=== PATIENT | female | born 1970 | race American Indian/Alaskan Native ===

== ENCOUNTER 2016-12-13 12:03 | Emergency (ER) | payer MEDICARE ==
[2016-12-13 13:12] LABS: Basophils % (Auto) 0.7 % (0.0-1.8); Eosinophils % (Auto) 0.8 % (0.0-4.3); Hemoglobin 12.1 gm/dl (10.1-14.3); Mean Corpuscular HGB Conc 33 % (30-34); Mean Corpuscular Hemoglobin 32 pg (28-32); Mean Corpuscular Volume 96 fl (79-97); Platelet Count 252 K/mm3 (140-440); Red Blood Count 3.86 M/mm3 (3.65-5.03); Red Cell Distribution Width 15.8 % (13.2-15.2); White Blood Count 5.4 K/mm3 (4.5-11.0)
[2016-12-13 13:15] LABS: Anion Gap 16 mmol/L; BUN/Creatinine Ratio 8.88; Blood Urea Nitrogen 8 mg/dL (7-17); Calcium 9.3 mg/dL (8.4-10.2); Carbon Dioxide 28 mmol/L (22-30); Chloride 99.5 mmol/L (98-107); Glucose 90 mg/dL (65-100); Sodium 139 mmol/L (137-145)
[2016-12-13] MEDS ORDERED: ZOFRAN ODT PO ONE (21:50)
[2016-12-13] MEDS ORDERED: MORPHINE IM ONE (21:50)
--- NOTE | 2016-12-13 22:26 | Emergency Department Report ---
HPI - General Chief Complaint: Chest Pain Time Seen by Provider: 12/13/16 21:17 - HPI HPI: The patient is a 46-year-old female presents for evaluation of chest pain. The patient reports chest pain for the past one week, constant for the past one day , 5/10 in severity, dull in quality. The patient denies fever, trauma to the chest, cough, syncope, hemoptysis, unilateral leg swelling, oral contraceptive use, recent immobilization, history of DVT or PE, recent cancer, history of familial coagulation disorder. ED Past Medical Hx - Past Medical History Previous Medical History?: Yes Hx Hypertension: Yes Hx CVA: No Hx Diabetes: Yes (borderline) Hx GERD: Yes Hx Renal Disease: No Hx Arthritis: Yes Hx Seizures: Yes Hx Asthma: Yes Additional medical history: lupus. hiatal hernia. SVT. FIBROMYALGIA. NEUROPATHY. NARCOLEPSY. HYPOTHYROIDISM. OBESITY. SLEEP APNEA - Surgical History Past Surgical History?: Yes Hx Pacemaker: No Additional Surgical History: ESOPHAGEAL WIDENING. X 2. TUBAL LIGATION - Social History Smoking Status: Never Smoker Substance Use Type: None - Medications Home Medications: Home Medications Medication Instructions Recorded Confirmed Last Taken Type Duloxetine HCl [Cymbalta] 60 mg PO DAILY 08/28/15 12/13/16 01/08/16 History Ergocalciferol [Vitamin D2] 1 cap PO QWEEK 08/28/15 12/13/16 01/08/16 History Nortriptyline [Pamelor] 25 mg PO QHS 08/28/15 12/13/16 01/08/16 History levETIRAcetam [Keppra TAB] 1,000 mg PO Q8H 08/28/15 12/13/16 01/08/16 History Gabapentin [Neurontin] 300 mg PO Q8HR #90 capsule 08/29/15 12/13/16 01/08/16 Rx Labetalol HCl [Trandate TAB] 300 mg PO BID #60 tablet 08/29/15 12/13/16 Rx Losartan [Cozaar] 100 mg PO QDAY #30 tablet 08/29/15 12/13/16 01/08/16 Rx Butalb/Acetaminophen/Caffeine 1 cap PO Q6HR PRN #14 cap 01/09/16 12/13/16 Unknown Rx [Fioricet 50-300-40 mg CAP] Diclofenac Sodium 75 mg PO BID 01/09/16 12/13/16 01/08/16 History Furosemide [Lasix TAB] 20 mg PO QDAY PRN 01/09/16 12/13/16 01/08/16 History Hydroxychloroquine [Plaquenil] 200 mg PO BID 01/09/16 12/13/16 01/08/16 History Levothyroxine [Synthroid] 300 mcg PO QAM 01/09/16 12/13/16 01/08/16 History NIFEdipine XL [Procardia Xl] 60 mg PO BID 01/09/16 12/13/16 01/08/16 History Pregabalin [Lyrica] 75 mg PO BID 01/09/16 12/13/16 01/08/16 History predniSONE [Deltasone] 20 mg PO QDAY 01/09/16 12/13/16 01/08/16 History predniSONE [Deltasone] 20 mg PO QDAY #5 tab 12/13/16 Unknown Rx traMADol [Ultram 50 MG tab] 50 mg PO Q6HR PRN #20 tablet 12/13/16 Unknown Rx ED Review of Systems ROS: Stated complaint: CHEST PAIN Other details as noted in HPI Constitutional: denies: fever ENT: denies: throat or neck pain Respiratory: denies: cough, shortness of breath Cardiovascular: reports chest pain Endocrine: denies unexplained weight loss or gain Gastrointestinal: denies: abdominal pain, nausea Genitourinary: denies: dysuria Musculoskeletal: denies: leg swelling Skin: denies: rash Neurological: denies: headache Hematological/Lymphatic: denies: easy bleeding or easy bruising Psych: denies sadness or hopelessness Physical Exam - Physical Exam Vital Signs: Vital Signs 12/13/16 12/13/16 12:22 21:19 Temperature 98.8 F Pulse Rate 81 96 H Respiratory 22 16 Rate Blood Pressure 161/109 Blood Pressure 174/104 [Left] O2 Sat by Pulse 100 98 Oximetry Physical Exam: General: well-nourished, well-developed, no acute distress Head: Normocephalic, atraumatic Eyes: normal sclera ENT: Mucous membranes are pink and moist Neck: trachea midline, neck supple, No neck stiffness, no cervical adenopathy Respiratory: Breath sounds equal bilaterally, no wheezing, rales, or rhonchi Cardio: S1 and S2 present, no murmurs, rubs, gallops, capillary refill is brisk Abdomen: Normoactive bowel sounds, soft abdomen, no rigidity, no guarding or rebound tenderness Musc: No pitting edema Skin: No rash Neuro: no facial drooping, normal speech Psych: Normal affect ED Course Vital Signs 12/13/16 12/13/16 12:22 21:19 Temperature 98.8 F Pulse Rate 81 96 H Respiratory 22 16 Rate Blood Pressure 161/109 Blood Pressure 174/104 [Left] O2 Sat by Pulse 100 98 Oximetry ED Medical Decision Making - Lab Data Result diagrams: 12/13/16 12:41 12/13/16 12:41 - Medical Decision Making The patient was seen and examined by myself. The patient is placed on a quality assurance monitor and continuous pulse ox. On initial evaluation, the patient was found to be in no distress. EKG was negative for findings suggestive of acute cardiac infarct. Labs and imaging are obtained. The patient is given IM dose of morphine for her pain. Chest x-ray is negative for pneumothorax, focal consolidation, pulmonary vascular congestion, pleural effusion, or other obvious acute cardiopulmonary disease process. Lab results were non-concerning including levels of troponin, WBC, hemoglobin, hematocrit, electrolytes, renal function. The patient was reevaluated and reported that their symptoms were markedly improved. As the patient has a MATTHEW risk score less than 2, and a well 's score less than 2, the patient is at low risk of ACS or pulmonary emboli etiology of their symptoms. The patient is stable for discharge with outpatient follow-up. The patient is given follow-up and return instructions. The patient expressed understanding and agreed with the plan. The patient is discharged in stable condition. Critical care attestation.: If time is entered above; I have spent that time in minutes in the direct care of this critically ill patient, excluding procedure time. ED Disposition Clinical Impression: Acute chest pain Disposition: DISCHARGED TO HOME OR SELFCARE Is pt being admited?: No Does the pt Need Aspirin: No Condition: Stable Instructions: Chest Pain (ED) Referrals: PRIMARY CARE, [Primary Care Provider] - 3-5 Days Time of Disposition: 22:05
[2016-12-13 22:51] VITALS: BP 168/101
--- NOTE | 2016-12-14 07:30 | XRay Report ---
AP CHEST: HISTORY: chest pain AP view of the chest demonstrates a normal mediastinal and cardiac contour with clear lungs and normal bony and soft tissue structures. IMPRESSION: No acute cardiopulmonary process.
== END 2016-12-13 23:01 | disposition home or self-care (01) ==
LOC: ED 12:03
DX: R07.9 Chest pain, unspecified (principal); I10 Essential (primary) hypertension; E11.9 Type 2 diabetes mellitus without complications; K21.9 Gastro-esophageal reflux disease without esophagitis; M19.90 Unspecified osteoarthritis, unspecified site; J45.909 Unspecified asthma, uncomplicated; E66.9 Obesity, unspecified; M32.9 Systemic lupus erythematosus, unspecified; E03.9 Hypothyroidism, unspecified
CPT/HCPCS: 36415; 71010; 80048; 84484; 85025; 93005; 93010; 96372; 99285; J2270; Q0162

== ENCOUNTER 2017-09-20 18:48 | Emergency (ER) | payer MEDICARE ==
[2017-09-20] MEDS ORDERED: ZOFRAN ONE (19:40)
[2017-09-20 20:32] LABS: Basophils # (Auto) 0.1 K/mm3 (0.0-0.1); Basophils % (Auto) 0.8 % (0.0-1.8); Eosinophils # (Auto) 0.1 K/mm3 (0.0-0.4); Eosinophils % (Auto) 1.1 % (0.0-4.3); Hematocrit 34.4 % (30.3-42.9); Hemoglobin 11.1 gm/dl (10.1-14.3); Lymphocytes # (Auto) 2.4 K/mm3 (1.2-5.4); Mean Corpuscular HGB Conc 32 % (30-34); Mean Corpuscular Hemoglobin 31 pg (28-32); Mean Corpuscular Volume 95 fl (79-97); Monocytes # (Auto) 0.5 K/mm3 (0.0-0.8); Monocytes % (Auto) 6.4 % (0.0-7.3); Platelet Count 220 K/mm3 (140-440); Red Blood Count 3.61 M/mm3 (3.65-5.03); Red Cell Distribution Width 17.2 % (13.2-15.2)
[2017-09-20 20:39] LABS: BUN/Creatinine Ratio 13; Blood Urea Nitrogen 14 mg/dL (7-17); Calcium 8.8 mg/dL (8.4-10.2); Hemolysis Index 18
[2017-09-20] MEDS ORDERED: MORPHINE IV ONE ×2 (20:43→22:41)
[2017-09-20] MEDS ORDERED: APRESOLINE IV ONE ×2 (20:43→23:23)
--- NOTE | 2017-09-20 20:51 | Emergency Department Report ---
ED Chest Pain HPI - General Chief Complaint: Chest Pain Stated Complaint: CHEST PAIN Time Seen by Provider: 09/20/17 20:09 Source: patient, EMS Mode of arrival: Stretcher Limitations: No Limitations - History of Present Illness Initial Comments: 47-year-old [place] female presents to the emergency department with complaint of some midsternal chest pain/pressure that started about 45 minutes prior to arrival. Associated with some nausea without vomiting. The patient was recently admitted to [facility] after she presented with SVT and chest pain. She had a cardiac catheterization done on 09/18/17, 2 days ago, but did not show any type of coronary artery occlusion or stenosis and she had an ejection fraction of 55%, basically showing a normal catheterization. She also has been dealing with some elevated blood pressure and subsequent headaches. Prior to this last admission, the patient had been noncompliant with her medications secondary to insurance issues. She just recently was restarted on some of her meds and is taking Lopressor and Diovan for blood pressure. She has a past medical history of asthma, borderline diabetes, GERD, hypertension, lupus, fibromyalgia and hypothyroidism. Her primary care physician is a Dr. pantoja and she sees [facility] and Dr. Elizabeth. She has not taken anything for her symptoms prior to presentation. - Related Data Home Medications Medication Instructions Recorded Confirmed Last Taken Furosemide [Lasix TAB] 40 mg PO DAILY 01/09/16 09/14/17 01/08/16 DULoxetine [Cymbalta] 30 mg PO DAILY 09/14/17 09/14/17 Unknown Gabapentin [Neurontin] 400 mg PO TID 09/14/17 09/14/17 Unknown Levothyroxine [Synthroid] 50 mcg PO DAILY 09/14/17 09/14/17 Unknown levETIRAcetam [Keppra] 500 mg PO BID 09/14/17 09/14/17 Unknown Previous Rx's Medication Instructions Recorded Last Taken Type Hydroxychloroquine [Plaquenil] 200 mg PO BID tablet 09/18/17 Unknown Rx Levothyroxine [Synthroid] 300 mcg PO QAM@0600 tablet 09/18/17 Unknown Rx Metoprolol [Lopressor TAB] 25 mg PO BID #60 tablet 09/18/17 Unknown Rx Metoprolol [Lopressor TAB] 50 mg PO BID #60 tablet 09/18/17 Unknown Rx Pregabalin [Lyrica] 75 mg PO BID capsule 09/18/17 Unknown Rx Valsartan [Diovan] 160 mg PO DAILY #30 tablet 09/18/17 Unknown Rx levETIRAcetam [Keppra TAB] 1,000 mg PO Q8H tablet 09/18/17 Unknown Rx predniSONE [Deltasone] 20 mg PO QDAY tablet 09/18/17 Unknown Rx HYDROcodone/APAP 5-325 [Carmel 1 each PO Q6HR PRN #10 tablet 09/20/17 Unknown Rx 5/325] Allergies Allergy/AdvReac Type Severity Reaction Status Date / Time iodine Allergy Itching Verified 08/28/15 16:42 Sulfa (Sulfonamide Allergy Shortness Verified 08/28/15 16:42 Antibiotics) of Breath Heart Score - HEART Score History: Slightly suspicious EKG: Normal Age: 45-65 Risk factors: 1-2 risk factors Troponin: < normal limit HEART Score: 2 - Critical Actions Critical Actions: 0-3 pts:0.9-1.7%risk of adverse cardiac event.Candidate for discharge ED Review of Systems ROS: Stated complaint: CHEST PAIN Other details as noted in HPI Comment: All other systems reviewed and negative Constitutional: denies: chills, fever Eyes: denies: eye pain, eye discharge, vision change ENT: denies: ear pain, throat pain Respiratory: denies: cough, wheezing Cardiovascular: chest pain. denies: edema Gastrointestinal: nausea. denies: vomiting Genitourinary: denies: urgency, dysuria, discharge Musculoskeletal: denies: back pain, joint swelling, arthralgia Skin: denies: rash, lesions Neurological: headache. denies: weakness ED Past Medical Hx - Past Medical History Hx Hypertension: Yes Hx CVA: No Hx Congestive Heart Failure: No Hx Diabetes: Yes (borderline) Hx GERD: Yes Hx Renal Disease: No Hx Arthritis: Yes Hx Seizures: Yes Hx Asthma: Yes Hx COPD: No Hx HIV: No Additional medical history: lupus. hiatal hernia. SVT. FIBROMYALGIA. NEUROPATHY. NARCOLEPSY. HYPOTHYROIDISM. OBESITY. SLEEP APNEA - Surgical History Hx Pacemaker: No Additional Surgical History: ESOPHAGEAL WIDENING. X 2. TUBAL LIGATION - Social History Smoking Status: Never Smoker Substance Use Type: None - Medications Home Medications: Home Medications Medication Instructions Recorded Confirmed Last Taken Type Furosemide [Lasix TAB] 40 mg PO DAILY 01/09/16 09/14/17 01/08/16 History DULoxetine [Cymbalta] 30 mg PO DAILY 09/14/17 09/14/17 Unknown History Gabapentin [Neurontin] 400 mg PO TID 09/14/17 09/14/17 Unknown History Levothyroxine [Synthroid] 50 mcg PO DAILY 09/14/17 09/14/17 Unknown History levETIRAcetam [Keppra] 500 mg PO BID 09/14/17 09/14/17 Unknown History Hydroxychloroquine [Plaquenil] 200 mg PO BID tablet 09/18/17 Unknown Rx Levothyroxine [Synthroid] 300 mcg PO QAM@0600 tablet 09/18/17 Unknown Rx Metoprolol [Lopressor TAB] 25 mg PO BID #60 tablet 09/18/17 Unknown Rx Metoprolol [Lopressor TAB] 50 mg PO BID #60 tablet 09/18/17 Unknown Rx Pregabalin [Lyrica] 75 mg PO BID capsule 09/18/17 Unknown Rx Valsartan [Diovan] 160 mg PO DAILY #30 tablet 09/18/17 Unknown Rx levETIRAcetam [Keppra TAB] 1,000 mg PO Q8H tablet 09/18/17 Unknown Rx predniSONE [Deltasone] 20 mg PO QDAY tablet 09/18/17 Unknown Rx HYDROcodone/APAP 5-325 [Carmel 1 each PO Q6HR PRN #10 tablet 09/20/17 Unknown Rx 5/325] ED Physical Exam - General Limitations: No Limitations - Other Other exam information: GENERAL: The patient is well-developed well-nourished. HENT: Normocephalic. Atraumatic. Patient has moist mucous membranes. EYES: Extraocular motions are intact. Pupils equal reactive to light bilaterally. No nystagmus. NECK: Supple. Trachea is midline. CHEST/LUNGS: Clear to auscultation. There is no respiratory distress noted. HEART/CARDIOVASCULAR: Regular. There is no tachycardia. There is no murmur. ABDOMEN: Abdomen is soft, nontender. Patient has normal bowel sounds. Morbidly obese habitus. SKIN: Skin is warm and dry. NEURO: The patient is awake, alert, and oriented. The patient is cooperative. The patient has no focal neurologic deficits. The patient has normal speech. Cranial nerves II through XII grossly intact. MUSCULOSKELETAL: There is no tenderness or deformity. There is no evidence of acute injury. ED Course Vital Signs 09/20/17 09/20/17 09/20/17 19:28 19:30 19:32 Temperature Pulse Rate 71 74 64 Respiratory 19 26 H 20 Rate Blood Pressure 191/104 O2 Sat by Pulse 94 96 96 Oximetry 09/20/17 09/20/17 09/20/17 19:34 19:36 19:38 Temperature 98 F Pulse Rate 65 71 70 Respiratory 20 15 17 Rate Blood Pressure 191/104 191/104 191/104 O2 Sat by Pulse 95 94 97 Oximetry 09/20/17 09/20/17 09/20/17 19:40 19:42 19:44 Temperature Pulse Rate 70 63 Respiratory 16 10 L 12 Rate Blood Pressure 191/104 191/104 191/104 O2 Sat by Pulse 96 95 Oximetry 09/20/17 09/20/17 09/20/17 19:58 20:00 20:02 Temperature Pulse Rate Respiratory Rate Blood Pressure 191/104 191/104 191/104 O2 Sat by Pulse 97 98 97 Oximetry 09/20/17 09/20/17 09/20/17 20:04 20:06 20:10 Temperature Pulse Rate Respiratory Rate Blood Pressure 191/104 191/104 191/104 O2 Sat by Pulse 97 97 98 Oximetry 09/20/17 09/20/17 09/20/17 20:12 20:14 20:16 Temperature Pulse Rate Respiratory Rate Blood Pressure 191/104 191/104 191/104 O2 Sat by Pulse 95 94 97 Oximetry 09/20/17 09/20/17 09/20/17 20:18 20:20 20:22 Temperature Pulse Rate Respiratory Rate Blood Pressure 191/104 191/104 191/104 O2 Sat by Pulse 97 99 98 Oximetry 09/20/17 09/20/17 09/20/17 20:24 20:26 20:28 Temperature Pulse Rate Respiratory Rate Blood Pressure 191/104 191/104 191/104 O2 Sat by Pulse 97 98 99 Oximetry 09/20/17 09/20/17 09/20/17 20:30 20:32 20:34 Temperature Pulse Rate Respiratory Rate Blood Pressure 191/104 191/104 191/104 O2 Sat by Pulse 97 99 96 Oximetry 09/20/17 09/20/17 09/20/17 20:36 20:38 20:40 Temperature Pulse Rate Respiratory Rate Blood Pressure 191/104 191/104 191/104 O2 Sat by Pulse 98 96 96 Oximetry 09/20/17 09/20/17 09/20/17 20:42 20:44 20:46 Temperature Pulse Rate Respiratory Rate Blood Pressure 191/104 191/104 191/104 O2 Sat by Pulse 97 92 95 Oximetry 09/20/17 09/20/17 09/20/17 20:48 21:24 22:05 Temperature Pulse Rate Respiratory 18 15 Rate Blood Pressure 141/82 O2 Sat by Pulse 98 95 Oximetry 09/20/17 09/20/17 09/20/17 22:22 22:23 22:24 Temperature Pulse Rate 56 L 57 L 57 L Respiratory 18 18 Rate Blood Pressure 187/134 186/113 187/134 O2 Sat by Pulse 94 95 Oximetry 09/20/17 09/20/17 09/20/17 22:26 22:27 22:29 Temperature Pulse Rate 60 57 L 60 Respiratory 21 15 17 Rate Blood Pressure O2 Sat by Pulse 97 96 95 Oximetry 09/20/17 09/20/17 09/20/17 22:30 22:31 22:33 Temperature Pulse Rate 63 65 60 Respiratory 18 18 22 Rate Blood Pressure 179/122 179/122 179/122 O2 Sat by Pulse 91 92 95 Oximetry 09/20/17 09/20/17 09/20/17 22:35 22:37 22:39 Temperature Pulse Rate 62 55 L 66 Respiratory 19 13 20 Rate Blood Pressure 179/122 187/134 187/134 O2 Sat by Pulse 96 96 93 Oximetry 09/20/17 09/20/17 09/20/17 22:41 22:43 22:45 Temperature Pulse Rate 59 L 57 L 59 L Respiratory 20 17 15 Rate Blood Pressure 187/134 187/134 187/134 O2 Sat by Pulse 96 96 98 Oximetry 09/20/17 09/20/17 09/20/17 22:47 22:49 22:51 Temperature Pulse Rate 58 L 65 62 Respiratory 20 12 16 Rate Blood Pressure 182/104 182/104 182/104 O2 Sat by Pulse 97 98 97 Oximetry 09/20/17 09/20/17 09/20/17 22:53 22:55 22:56 Temperature Pulse Rate 62 Respiratory 17 16 18 Rate Blood Pressure 182/104 182/104 O2 Sat by Pulse 94 96 97 Oximetry 09/20/17 09/20/17 09/20/17 22:57 22:59 23:00 Temperature Pulse Rate Respiratory 17 13 14 Rate Blood Pressure 182/104 182/104 193/108 O2 Sat by Pulse 96 98 97 Oximetry 09/20/17 09/20/17 09/20/17 23:01 23:03 23:05 Temperature Pulse Rate Respiratory 14 13 18 Rate Blood Pressure 193/108 193/108 193/108 O2 Sat by Pulse 96 96 98 Oximetry 09/20/17 09/20/17 09/20/17 23:07 23:09 23:11 Temperature Pulse Rate Respiratory 17 14 18 Rate Blood Pressure 193/108 193/108 193/108 O2 Sat by Pulse 95 100 96 Oximetry 09/20/17 09/20/17 09/20/17 23:13 23:15 23:17 Temperature Pulse Rate 78 Respiratory 16 19 13 Rate Blood Pressure 193/108 193/108 197/122 O2 Sat by Pulse 97 97 98 Oximetry 09/20/17 09/20/17 09/20/17 23:19 23:21 23:23 Temperature Pulse Rate 66 60 61 Respiratory 15 25 H 13 Rate Blood Pressure 197/122 197/122 197/122 O2 Sat by Pulse 96 97 96 Oximetry 09/20/17 09/20/17 09/20/17 23:25 23:27 23:29 Temperature Pulse Rate 67 61 69 Respiratory 16 18 15 Rate Blood Pressure 197/122 197/122 197/122 O2 Sat by Pulse 97 96 95 Oximetry 09/20/17 09/20/17 09/20/17 23:31 23:33 23:35 Temperature Pulse Rate 67 72 70 Respiratory 16 19 19 Rate Blood Pressure 169/92 169/92 169/92 O2 Sat by Pulse 92 93 96 Oximetry 09/20/17 09/20/17 09/20/17 23:37 23:39 23:41 Temperature Pulse Rate 71 71 71 Respiratory 24 18 22 Rate Blood Pressure 169/92 169/92 169/92 O2 Sat by Pulse 96 96 96 Oximetry 09/20/17 09/20/17 09/20/17 23:43 23:45 23:47 Temperature Pulse Rate 72 71 72 Respiratory 14 18 19 Rate Blood Pressure 169/92 169/92 169/89 O2 Sat by Pulse 97 96 94 Oximetry 09/20/17 09/20/17 09/20/17 23:49 23:51 23:53 Temperature Pulse Rate 77 74 64 Respiratory 19 15 12 Rate Blood Pressure 169/89 169/89 169/89 O2 Sat by Pulse 96 93 99 Oximetry 09/20/17 23:55 Temperature Pulse Rate 73 Respiratory 15 Rate Blood Pressure 169/89 O2 Sat by Pulse 98 Oximetry - Consultations Consultation #1: I spoke with Dr. Leija of [facility] who listened to the patient's presentation and her recent workup including heart catheterization. He feels that she is safe for discharge home once there is some blood pressure control and recommend that she follows up in the office in the next 1-2 days. 09/20/17 23:48 ELADIO score - Eladio Score Age > 65: (0) No Aspirin use within the Past 7 Days: (0) No 3 or more CAD Risk Factors: (0) No 2 or more Angina events in past 24 hrs: (1) Yes Known CAD with more than 50% Stenosis: (0) No Elevated Cardiac Markers: (0) No ST Deviation Greater than 0.5mm: (0) No ELADIO Score: 1 ED Medical Decision Making - Lab Data Result diagrams: 09/20/17 20:05 09/20/17 20:05 - EKG Data -: EKG Interpreted by Me EKG shows normal: sinus rhythm, axis, intervals, QRS complexes (low voltage), ST -T waves Rate: normal - EKG Data When compared to previous EKG there are: previous EKG unavailable Interpretation: normal EKG (low voltage) - Radiology Data Radiology results: report reviewed, image reviewed interpreted by me: Chest x-ray does not show any acute process. There are no pleural effusions, obvious pneumonia and there is no pneumothorax. PROCEDURE: CT head without contrast. TECHNIQUE: Computerized tomography of the head was performed without contrast material. HISTORY: Headache with hypertension. COMPARISON: No prior studies are available for comparison. FINDINGS: The ventricles are normal in size. The subramanian matter and white matter appear normal. There are no mass lesions. There is no intracranial hemorrhage. The calvarium appears intact. The mastoid air cells and visualized paranasal sinuses are well aerated. IMPRESSION: Normal study. Transcribed By: [facility] Dictated By: EWA THAKUR MD Electronically Authenticated By: EWA THAKUR MD Signed Date/Time: 09/20/172135 - Medical Decision Making Patient presents with some continuation of her symptoms that brought her in last week. She complains of some chest pressure, headache and hypertensive issues. The patient does have elevated blood pressure upon first arrival but we were able to get it down to a more reasonable level with a dose of hydralazine and some pain medication. Since patient has had intermittent headaches but has not had a recent CT scan, I ordered a CT scan of the brain without contrast that did not show any bleed, shift, mass or any acute process. Chest x-ray does not show any acute process as well. Labs were mostly unremarkable as well. There is no signs of any leukocytosis, electrolyte abnormalities, renal insufficiency or glucose abnormalities. Negative troponins 2. BNP is low. The patient's TSH was elevated with concern for uncontrolled hypothyroidism, but the T4 level was in the normal range. The patient was given some pain medication and had some improvement of her symptoms. I spoke with Dr. Leija who agrees that the patient does not require admission for her chest pains that she just had a negative heart catheterization and he recommends follow-up in the office the next day or so. The patient does not have any focal, motor or sensory deficits in her cranial nerves are intact. We discussed keeping a blood pressure log, staying away from foods that are high in salt caffeinated products. The patient will return to the ER with any worsening of her symptoms or any acute distress. - Differential Diagnosis NC, costochondritis, tension headache, migraine Critical Care Time: No Critical care attestation.: If time is entered above; I have spent that time in minutes in the direct care of this critically ill patient, excluding procedure time. ED Disposition Clinical Impression: Chest pain Qualifiers: Chest pain type: unspecified Qualified Code(s): R07.9 - Chest pain, unspecified Hypertension Qualifiers: Hypertension type: essential hypertension Qualified Code(s): I10 - Essential ( primary) hypertension Headache Qualifiers: Headache type: unspecified Headache chronicity pattern: episodic headache Intractability: not intractable Qualified Code(s): R51 - Headache Disposition: DC-01 TO HOME OR SELFCARE Is pt being admited?: No Condition: Stable Instructions: Chest Pain (ED), Acute Headache (ED), Hypertension (ED) Additional Instructions: Please follow up with [facility] as soon as possible regarding your chest pains, blood pressure control. It is also recommended that he follow up with your primary care physician. Try and stay away from foods that are high in salt and caffeinated products to help with your blood pressure. Keep a blood pressure log. Continue with your blood pressure medications. Return to the emergency Department with any worsening of your symptoms or any acute distress. You have been prescribed a medication that is sedating and therefore should not be taken prior to driving, working, and responsible for children and in no way should be mixed with alcohol of any quantity. Prescriptions: HYDROcodone/APAP 5-325 [Carmel 5/325] 1 each PO Q6HR PRN #10 tablet PRN Reason: Pain Referrals: DEREJE MCNALLY MD [Staff Physician] - [facility] Time of Disposition: 23:49
--- NOTE | 2017-09-20 21:41 | Cat Scan Report ---
FINAL REPORT PROCEDURE: CT head without contrast. TECHNIQUE: Computerized tomography of the head was performed without contrast material. HISTORY: Headache with hypertension. COMPARISON: No prior studies are available for comparison. FINDINGS: The ventricles are normal in size. The subramanian matter and white matter appear normal. There are no mass lesions. There is no intracranial hemorrhage. The calvarium appears intact. The mastoid air cells and visualized paranasal sinuses are well aerated. IMPRESSION: Normal study.
[2017-09-21 00:01] VITALS: BP 169/89
--- NOTE | 2017-09-21 07:41 | XRay Report ---
FINAL REPORT EXAM: XR CHEST 1V AP HISTORY: CP TECHNIQUE: AP portable view(s) of the chest obtained. PRIORS: 09/13/2017 FINDINGS: No mediastinal shift. Cardiac silhouette is not enlarged for portable technique. No pneumothorax, effusion, or focal pulmonary opacity identified. No acute skeletal findings. IMPRESSION: No acute pulmonary finding identified.
== END 2017-09-21 00:30 | disposition home or self-care (01) ==
LOC: ED 18:48
DX: R07.2 Precordial pain (principal); I10 Essential (primary) hypertension; R51 Headache; E11.9 Type 2 diabetes mellitus without complications; M19.90 Unspecified osteoarthritis, unspecified site; J45.909 Unspecified asthma, uncomplicated; G47.39 Other sleep apnea
CPT/HCPCS: 36415; 70450; 71045; 80048; 83880; 84436; 84443; 84484; 85025; 93005; 93010; 96374; 96375; 96376; 99285; J0360; J2270; J2405